=== PATIENT | female | born 1985 | race African-American/Black ===

== ENCOUNTER 2020-06-02 15:25 | Emergency (ER) | payer OTHER ==
[~2020-06-02] VITALS: Ht 170.2 cm; Wt 90.7 kg
[2020-06-02] MEDS ORDERED: AMOXICILLIN 50500 MG PO (17:18)
[2020-06-02] MEDS ORDERED: NAPROSYN500 MG PO (17:18)
[2020-06-02 17:26] VITALS: BP 132/78
== END 2020-06-02 17:27 | disposition home or self-care (01) ==
LOC: M.ERS 15:25
DX: H66.91 Otitis media, unspecified, right ear (principal)